=== PATIENT | male | born 1950 | race African-American/Black ===

== ENCOUNTER 2022-12-29 11:29 | Inpatient (IN) | payer OTHER ==
[~2022-12-29] VITALS: Ht 170.2 cm; Wt 62.3 kg
[2022-12-29 12:24] LABS: BASOPHILS % 0.3 % (0.0-2.0); EOSINOPHILS % 2.8 % (0.0-5.0); HEMATOCRIT. 37.3 % (42.0-52.0); HEMOGLOBIN. 12.7 g/dL (14.0-18.0); MEAN CORPUSCULAR HEMOGLOBIN 31.7 pg (28.0-32.0); MEAN CORPUSCULAR VOLUME 93.2 fL (80.0-94.0); MEAN PLATELET VOLUME 6.9 fl (7.4-10.4); MONOCYTES % 8.1 % (2.0-8.0); NEUTROPHILS % 64.8 % (40.0-76.0); PLATELET 218 x1000/uL (130-400); RED CELL DISTRIBUTION WIDTH 14.7 % (11.6-14.6)
[2022-12-29 12:33] LABS: CHLORIDE 101 mEq/L (98-107)
[2022-12-29] MEDS ORDERED: SODIUM CHLORIDE 0.9% 1,000 ML IV SCH (21:00)
[2022-12-29] MEDS ORDERED: ENOXAPARIN 40MG/0.4ML SYR SUBCUT SCH (21:00)
[2022-12-29] MEDS ORDERED: LORAZEPAM 2MG/ML CPJ IV PRN (21:15)
[2022-12-29] MEDS ORDERED: ONDANSETRON HCL 4MG/2ML INJ IV PRN (21:15)
[2022-12-29] MEDS ORDERED: DOCUSATE SODIUM 100MG CAPSULE PO PRN (21:15)
[2022-12-29] MEDS ORDERED: NALOXONE HCL 0.4MG/ML VIAL IV PRN (21:15)
[2022-12-29] MEDS ORDERED: HYDROCODONE/ACETAMINOPHEN 5/325MG TABLET PO PRN (21:15)
[2022-12-29] MEDS ORDERED: MORPHINE SULFATE 2 MG/ML CPJ (NOT FOR IM USE) IV PRN (21:15)
[2022-12-29] MEDS: AMLODIPINE 5MG TABLET PO SCH (23:08)
[2022-12-30 01:44] VITALS: BP 153/84
[2022-12-30 01:53] LABS: CREATINE KINASE MB FRACTION 1.2 ng/mL (0.5-3.6)
[2022-12-30] MEDS ORDERED: BUDE3CAP8 PO (02:05)
[2022-12-30] MEDS ORDERED: MESA400C3 PO (02:05)
[2022-12-30] MEDS ORDERED: HYDR12.54 MT (02:05)
[2022-12-30] MEDS ORDERED: PANT40TA51 MT (02:05)
[2022-12-30] MEDS ORDERED: LOSA50TA41 MT (02:05)
[2022-12-30 08:00] VITALS: BP 124/80
[2022-12-30] MEDS: AMLODIPINE 5MG TABLET PO SCH (09:18)
[2022-12-30 11:52] LABS: BASOPHILS % 0.5 % (0.0-2.0); EOSINOPHILS % 2.4 % (0.0-5.0); HEMATOCRIT. 38.8 % (42.0-52.0); LYMPHOCYTES % 21.9 % (20.0-50.0); MEAN CORPUSCULAR HEMOGLOBIN 31.4 pg (28.0-32.0); MEAN CORPUSCULAR VOLUME 93.8 fL (80.0-94.0); MEAN PLATELET VOLUME 7.1 fl (7.4-10.4); MONOCYTES % 6.6 % (2.0-8.0); NEUTROPHILS % 68.6 % (40.0-76.0); PLATELET 234 x1000/uL (130-400); RED BLOOD CELL COUNT 4.13 mill/uL (4.7-6.1)
[2022-12-30 12:00] VITALS: BP 129/76
[2022-12-30 12:09] LABS: CHLORIDE 103 mEq/L (98-107)
[2022-12-30 14:00] VITALS: BP 120/84
[2022-12-30 14:37] LABS: CLARITY URINE CLEAR (CLEAR); COLOR URINE YELLOW (YELLOW); KETONES URINE NEGATIVE (NEGATIVE); LEUKOCYTE ESTERASE URINE NEGATIVE (NEGATIVE); NITRITE URINE NEGATIVE (NEGATIVE); OCCULT BLOOD URINE NEGATIVE (NEGATIVE); PROTEIN URINE NEGATIVE (NEGATIVE); SPECIFIC GRAVITY URINE 1.007 (1.005-1.030); UROBILINOGEN URINE 0.2 E.U./dL (0.2-1.0)
[2022-12-30 15:22] VITALS: BP 129/76
== END 2022-12-30 15:22 | disposition home or self-care (01) | DRG 74 ==
LOC: ER 11:29 → 7EST 13:16 → EDBEDREQ 13:18 → EDBEDREQTM 13:18 → ENRESERV 21:08 → ER 22:49
PROVIDERS: ADMIT Internal Medicine Nephrology; ATTEND Internal Medicine Nephrology
DX: G90.8 Other disorders of autonomic nervous system (principal); I10 Essential (primary) hypertension
CPT/HCPCS: 36415; 71045; 80053; 81003; 82550; 82553; 83880; 84484; 85025; 93005; 99285; J1650; J7030